=== PATIENT | male | born 1960 | race African-American/Black ===

== ENCOUNTER 2017-12-12 14:55 | Inpatient (IN) | payer OTHER, MEDICARE ==
[~2017-12-12 14:55] MED LIST: ISOVUE-370 76%-LOCM 1 ML ONE
[2017-12-12 15:28] LABS: #Lymphocytes 1.4 thou/uL (1.20-3.40); #Monocytes 0.5 thou/uL (0.11-0.59); #Neutrophils 4.7 thou/uL (1.40-6.50); %Basophils 0.4 % (0.0-1.0); %Eosinophils 0.3 % (0.0-10.0); %Lymphocytes 20.4 % (21.0-51.0); %Monocytes 7.6 % (0.0-10.0); %Neutrophils 71.3 % (42.0-75.0); Hemoglobin 15.6 g/dL (14.0-18.0); Mean Corpuscular HGB CONC 33.6 g/dL (32.0-36.0); Mean Corpuscular Hemoglobin 31.8 pg (27.0-31.0); Mean Corpuscular Volume 94.6 fL (78.0-98.0); Mean Platelet Volume 8.9 fL (7.4-10.4); Platelet Count 165 thou/uL (130-400); RBC Distribution Width 11.8 % (11.5-14.5); White Blood Cell (WBC) Count 6.7 thou/uL (4.8-10.8)
[2017-12-12 15:49] LABS: ALT (SGPT) 41 U/L (8-55); AST (SGOT) 67 U/L (5-34); Albumin 4.3 g/dL (3.5-5.0); Alkaline Phosphatase 84 U/L (40-150); Anion Gap 19 mmol/L (10-20); BUN (Urea Nitrogen) 10 mg/dL (8.4-25.7); Bilirubin, Total 1.5 mg/dL (0.2-1.2); Calc. Creatinine Clearance 0 mL/min (70-130); Calcium 9.6 mg/dL (7.8-10.44); Carbon Dioxide 24 mmol/L (22-29); Chloride 99 mmol/L (98-107); Estimated GFR-MDRD Greater than 90; Globulin 4.3 g/dL (2.4-3.5); Glucose 145 mg/dL (70-105); Lipase 162 U/L (8-78); Potassium 3.8 mmol/L (3.5-5.1); Protein, Total 8.6 g/dL (6.0-8.3); Sodium 138 mmol/L (136-145)
[2017-12-12] MEDS ORDERED: Ondansetron HCl/PF 4 MG/2 ML Vial ONE (17:03)
[2017-12-12 18:03] LABS: Bilirubin Small (Negative); Blood, Urine Small (Negative); Clarity CLOUDY (Clear); Glucose, Urine (Dipstick) Negative (Negative); Leukocyte Negative (Negative); Nitrite Negative (Negative); Protein, Urine (Dipstick) Trace mg/dL (Neg-Trace); Specific Gravity, Urine 1.022 (1.002-1.036)
[2017-12-12 18:04] LABS: Bacteria/HPF None Seen HPF (None Seen); Pathc Cast-AUWi Flag 0.72 (0-2.49); Squamous Epithelial 0-3 HPF (0-3); WBC/HPF 0-3 HPF (0-3)
[2017-12-12 18:23] LABS: Hyaline Casts/LPF NONE SEEN LPF (0-3 Hyaline)
--- NOTE | 2017-12-12 18:44 | CT ---
CT OF THE ABDOMEN AND PELVIS WITH IV CONTRAST: 12/12/17 INDICATION: Nausea, vomiting and abdominal pain. COMPARISON: None. FINDINGS: There is severe fatty infiltration of the liver. There is inflammatory changes seen in the pancreatic body and tail. No drainable fluid collection is evident. The spleen and adrenal glands appear within normal limits. There are small hypodensities involving benton th may represent cysts. There is a normal appendix in the right lower quadrant. Small bowel has a normal caliber. The bladder is moderately distended. There is scattered degenerative change. No definite acute osseous abnormali ty is evident. IMPRESSION: 1. Findings suspicious for a noncomplicated pancreatitis. 2. Severe fatty liver. 3. Renal hypodensities, too small to fully characterize, but statistically likely reflective of cysts. 4. Moderate distention of the bladder. POS: [facility]
[2017-12-12] MEDS ORDERED: Promethazine HCl 25 MG/ML VIAL ONE (19:02)
[2017-12-12] MEDS ORDERED: Ondansetron ODT 4 MG TAB PO PRN (19:55)
[2017-12-12] MEDS ORDERED: Acetaminophen 325 MG TAB PO PRN (19:55)
[2017-12-12] MEDS ORDERED: Ondansetron HCl/PF 4 MG/2 ML Vial IVP PRN (19:55)
--- NOTE | 2017-12-12 20:36 | ULT ---
RIGHT UPPER QUADRANT ULTRASOUND: 12/12/17 INDICATION: Right upper quadrant pain. FINDINGS: There is mild fatty infiltration of the liver. Small amount of sludge is seen within the gallbladder. No sonographic Mccarthy's sign is reported. Common bile duct measures 3.8 mm. Pancreas is obscured. R ight kidney measures 11.4 cm in length. IMPRESSION: 1. Fatty liver. 2. Gallbladder sludge. 3. No sonographic evidence of acute cholecystitis. POS: [facility]
[2017-12-12] MEDS: Lactated Ringer's 1,000 ML IV SCH (21:26)
[2017-12-12] MEDS ORDERED: Bisacodyl 5 MG TAB PO PRN (21:30)
[2017-12-12 22:53] VITALS: BMI 18.8
[2017-12-13] MEDS: Acetaminophen 1,000 MG in Premix Bag 1 BAG IVPB PRN ×3 (00:05→17:39)
[2017-12-13] MEDS: Lactated Ringer's 1,000 ML IV SCH ×5 (02:15→20:42)
--- NOTE | 2017-12-13 03:01 | HP ---
CHIEF COMPLAINT: Epigastric pain, nausea, and vomiting. HISTORIAN: The patient, reliable. HISTORY OF PRESENT ILLNESS: This is a 57-year-old patient with past medical history of pancreatitis 4 years ago, presenting with epigastric pain with associated symptoms of nausea and vomiting for 3 days per patient. Nausea and vomiting has been going on since Monday prior to this admission with 2017. The patient states that he took some Pepto-Bismol and he drunk Sprite and soda trying to help, but these did not help his symptoms. The patient stated that his pain was localized at the epigastric region, not radiating. Patient describes the pain as sharp, constant, pain 10/10 in severity. The patient also had associated symptoms of vomiting, which has been going on since Monday. Patient cannot tell how many times he vomited. Patient states that there is no blood in his vomitus. The patient denies fever, admits to some chills, and urinary retention, as well as constipation. Otherwise, the patient denies any chest pain, palpitation, headaches, and dizziness. REVIEW OF SYSTEMS: Positive for nausea, vomiting, pain in the epigastric region , constipation, but negative for the change that I have stated in the HPI. PAST MEDICAL HISTORY: Pancreatitis 4 years ago. PAST SURGICAL HISTORY: None. MEDICATIONS: Patient takes no medication. FAMILY HISTORY: Mom and dad from malignancy. Patient does not know which type malignancy. SOCIAL HISTORY: The patient states that he has been drinking two bottles of beer per day. Patient denies that he drinks any hard liquor. Patient had been in the in the past. The patient denies smoking any cigarettes or doing any illicit drugs. Allergies: NKDA PCP: [facility], but does not know the doctor's name. PHYSICAL EXAMINATION: VITAL SIGNS: Patient came into the emergency room was 175/98, pulse of 90, respiratory rate of 20, temperature of 98.8. Patient's vitals on admission was blood pressure 166/102, pulse was 95 and the patient was satting at 95 on room air. GENERAL: The patient appears to be very cachectic, not in acute distress, lying comfortably in bed, alert, and oriented x3. HEENT: Normocephalic, atraumatic. Pupils are equally round and reactive to light. Extraocular muscles are intact. No scleral icterus. NECK: No JVD. RESPIRATORY: Clear to auscultation bilaterally. No wheezing, no rales, no rhonchi is appreciated. CARDIOVASCULAR: Positive S1, S2, regular rate and rhythm. No murmurs, no gallops, no rubs. ABDOMEN: Mild tenderness at the epigastric region. Positive bowel sounds in all quadrants. No abdominal distention. No pulsatile masses appreciated. No peritoneal signs, no rigidity, no guarding, no rebound. No ecchymosis at the flanks. EXTREMITIES: Patient has 5/5 upper extremity strength, 5/5 lower extremity strength. The patient has good pulses bilaterally in the upper extremities and lower extremities. NEUROLOGIC: Patient is alert, oriented x3. No focal neurological deficits noted. SKIN: Warm, dry, and intact. PSYCHIATRIC: The patient is very pleasant, compliant, normal affect. LABORATORY DATA: WBC 6.7, hemoglobin 15.6, hematocrit is 46.4, platelets is 165. Chemistry: Patient's sodium is 138, potassium 3.8, chloride is 99, carbon dioxide 24, BUN is 10, creatinine 0.85. Lipase is 162. Urinalysis negative for nitrite, negative for leukocyte esterase. IMAGING: CT of the abdomen and pelvis with contrast showed noncomplicated pancreatitis, severe fatty liver, renal hypodensities, moderate distention of the bladder. ASSESSMENT AND PLAN: This is a 57-year-old gentleman with no significant past medical history except for history of pancreatitis 4 years ago. 1. Epigastric pain, nausea, and vomiting secondary to acute pancreatitis. Plan : For that we are going to give lactated Ringer's 200 mL admit patient n.p.o., admit patient's medicine floor. We will put Tylenol p.r.n. for pain and fever. We will put morphine for pain from 6-10. We will do ultrasound of the right upper quadrant, rule out gallstones. He has gallstones at the most common cause of pancreatitis. However, the patient is ethanol abuser, so we will advise the patient to stop or quit drinking and we will also do a lipid panel and get hemoglobin A1c. We will also obtain EKG. 2. Hypertension. Currently, the patient's blood pressure is 168 systolic on admission. We will consider starting patient on blood pressure medication. 3. Transaminitis. At this point, patient's AST is 67, we will monitor. 4. Fatty liver. Right upper quadrant ultrasound has been ordered. We will followup on the results. Currently, we will monitor the patient. 5. Deep venous thrombosis prophylaxis. We will encourage the patient to ambulate. We will do sequential compression device. 6. Gastrointestinal prophylaxis. We will do Pepcid. DISPOSITION: The patient is going to be admitted to the medicine floor. We are going to keep patient on lactated Ringer's. We will bring the lactated Ringer's down when the patient starts feeling hungry and patient wants to eat, we will feed the patient and possibly discharge the patient. This case was dictated by Dr. Sloan Mills on patient Maryellen Gutierrez. [facility]
[2017-12-13 05:19] LABS: Hemoglobin A1c 5.3 % (4.0-6.0)
[2017-12-13 05:28] LABS: Anion Gap 10 mmol/L (10-20); BUN (Urea Nitrogen) 9 mg/dL (8.4-25.7); Calc. Creatinine Clearance 104 mL/min (70-130); Calcium 8.4 mg/dL (7.8-10.44); Carbon Dioxide 30 mmol/L (22-29); Cardiac Risk 2.2 (Less than 4.5); Chloride 103 mmol/L (98-107); Cholesterol 153 mg/dl (< 200 Desired); Estimated GFR-MDRD Greater than 90; Glucose 89 mg/dL (70-105); HDL Cholesterol 69 mg/dL (>60 Neg Risk); LDL Cholesterol, Calculated 71 mg/dL; Magnesium 1.8 mg/dL (1.6-2.6); Potassium 3.4 mmol/L (3.5-5.1); Sodium 140 mmol/L (136-145); Triglycerides 64 mg/dL (Less than 150)
[2017-12-13] MEDS ORDERED: Lorazepam 2 MG/ML VIAL SLOW IVP PRN (14:10)
--- NOTE | 2017-12-13 14:13 | PDOC.PN ---
- Subjective Encounter Start Date: 12/13/17 Encounter Start Time: 14:14 Subjective: nsg notes rev, gin ovn, pt c/o abd pain about 7/10, better with IV -: acetaminophen, no nausea, no BM - Objective Resuscitation Status: Resuscitation Status FULL:Full Resuscitation Vital Signs & Weight: Vital Signs (12 hours) Temp Pulse Resp BP BP Pulse Ox 12/13/17 11:30 98.3 F 73 16 156/91 H 96 12/13/17 08:00 98.0 F 70 16 170/89 H 95 12/13/17 04:00 98.1 F 69 18 132/87 96 Weight Weight 154 lb 5.177 oz I&O: 12/12/17 12/13/17 12/14/17 06:59 06:59 06:59 Intake Total 1999 Balance 1999 Result Diagrams: 12/12/17 15:19 12/13/17 04:27 Phys Exam - Physical Examination Constitutional: NAD HEENT: PERRLA, moist MMs, sclera anicteric Respiratory: no wheezing, no rales, no rhonchi Cardiovascular: RRR, no significant murmur, no rub Gastrointestinal: soft, non-tender, no distention, positive bowel sounds Musculoskeletal: no edema Neurological: moves all 4 limbs Psychiatric: normal affect, A&O x 3 Dx/Plan - Plan * pancreatitis * med mgmt with NPO, IVF, repeat LFTs in AM * d/w pt - states his typical "flares" last approx 3-4 days apiece * will dec dose strength but inc freq of morphine dosing * transaminitis * likely rel to above * continue to monitor * repeat CMP in AM * etoh use/ abuse * counseled re: cessation, curr pre-contemplative * pt denies any hx of etoh w/d in the past * fatty liver * 2/2 to above * monitor transaminitis * * hypertension * stable, continue to monitor * diet; npo * activity: as eneida * dvt ppx Review of Systems - Medications/Allergies Allergies/Adverse Reactions: Allergies Allergy/AdvReac Type Severity Reaction Status Date / Time No Known Drug Allergies Allergy Verified 12/13/17 00:28 Medications: Current Medications Acetaminophen (Tylenol) 650 mg PO Q4H PRN PRN Reason: Headache/Fever or Pain Bisacodyl (Dulcolax) 10 mg PO DAILYPRN PRN PRN Reason: Constipation Lactated Ringer's (Lactated Ringer's) 1,000 mls @ 200 mls/hr IV .Q5H [facility] Last Admin: 12/13/17 12:29 Dose: 1,000 mls Acetaminophen 1,000 mg/ Device 100 mls @ 400 mls/hr IVPB Q6H PRN PRN Reason: Fever/Mild Pain Stop: 12/13/17 23:59 Last Admin: 12/13/17 09:49 Dose: 100 mls Lorazepam (Ativan) 0.5 mg SLOW IVP Q6H PRN PRN Reason: Anxiety/Agitation Morphine Sulfate (Morphine) 1 mg SLOW IVP Q3H PRN PRN Reason: Moderate to Severe Pain (4-10) Ondansetron HCl (Zofran Odt) 4 mg PO Q6H PRN PRN Reason: Nausea/Vomiting Ondansetron HCl (Zofran) 4 mg IVP Q6H PRN PRN Reason: Nausea/Vomiting Sodium Chloride (Flush - Normal Saline) 10 ml IVF PRN PRN PRN Reason: Saline Flush
[2017-12-14] MEDS: Lactated Ringer's 1,000 ML IV SCH ×5 (01:47→21:45)
--- NOTE | 2017-12-14 22:56 | PDOC.PN ---
- Subjective Encounter Start Date: 12/14/17 Encounter Start Time: 17:00 Subjective: nsg notes rev, gin ovn, pain improv now more in the 3/10 range -: tolerating clear liq diet - Objective Resuscitation Status: Resuscitation Status FULL:Full Resuscitation Vital Signs & Weight: Vital Signs (12 hours) Temp Pulse Resp BP BP BP Pulse Ox 12/14/17 20:00 155/98 H 12/14/17 19:55 98.3 F 90 16 155/98 H 95 12/14/17 16:20 97.5 F L 66 18 182/89 H 97 12/14/17 12:00 97.9 F 84 18 148/86 H 97 Weight Admit Weight 154 lb 5.177 oz Weight 154 lb 5.177 oz I&O: 12/13/17 12/14/17 12/15/17 06:59 06:59 06:59 Intake Total 1999 2400 Balance 1999 2400 Result Diagrams: 12/12/17 15:19 12/13/17 04:27 Phys Exam - Physical Examination Constitutional: NAD seated in hosp chair HEENT: moist MMs Respiratory: no wheezing, no rales, no rhonchi, clear to auscultation bilateral Cardiovascular: RRR, no significant murmur, no rub Gastrointestinal: soft, non-tender, positive bowel sounds Musculoskeletal: no edema Neurological: moves all 4 limbs Dx/Plan - Plan * pancreatitis, symptomatically improving * d/c ivf once tolerating clear liq diet * has been requiring sig less pain medication * transaminitis * likely rel to above * continue to monitor * repeat CMP in AM * etoh use/ abuse * counseled re: cessation, curr pre-contemplative * pt denies any hx of etoh w/d in the past * fatty liver * 2/2 to above * monitor transaminitis * * hypertension * stable, continue to monitor * diet; adv as eneida * activity: as eneida * dvt ppx poss d/c tomorrow if eneida diet Review of Systems - Medications/Allergies Allergies/Adverse Reactions: Allergies Allergy/AdvReac Type Severity Reaction Status Date / Time No Known Drug Allergies Allergy Verified 12/13/17 00:28 Medications: Current Medications Acetaminophen (Tylenol) 650 mg PO Q4H PRN PRN Reason: Headache/Fever or Pain Bisacodyl (Dulcolax) 10 mg PO DAILYPRN PRN PRN Reason: Constipation Lactated Ringer's (Lactated Ringer's) 1,000 mls @ 200 mls/hr IV .Q5H [facility] Last Admin: 12/14/17 21:45 Dose: 1,000 mls Lorazepam (Ativan) 0.5 mg SLOW IVP Q6H PRN PRN Reason: Anxiety/Agitation Morphine Sulfate (Morphine) 1 mg SLOW IVP Q3H PRN PRN Reason: Moderate to Severe Pain (4-10) Last Admin: 12/14/17 12:13 Dose: 1 mg Ondansetron HCl (Zofran Odt) 4 mg PO Q6H PRN PRN Reason: Nausea/Vomiting Ondansetron HCl (Zofran) 4 mg IVP Q6H PRN PRN Reason: Nausea/Vomiting Sodium Chloride (Flush - Normal Saline) 10 ml IVF PRN PRN PRN Reason: Saline Flush
[2017-12-15] MEDS: Lactated Ringer's 1,000 ML IV SCH ×3 (02:43→14:41)
[2017-12-15 07:27] VITALS: TEMP 98.3
[2017-12-15 11:27] VITALS: BP 166/94
--- NOTE | 2017-12-15 13:27 | DIS ---
PRIMARY CARE PHYSICIAN: None. DISCHARGE DIAGNOSES: Alcohol-induced acute pancreatitis, resolved. BRIEF SUMMARY OF HOSPITAL COURSE: This is a 57-year-old male with known history of alcohol pancreati tis, chronic pancreatitis, and recurrent pancreatitis, who presented with more of the same. He initi ally presented with a chief complaint of abdominal pain. Please see original history and physical fo r full details. Patient was initiated on medical management for the pancreatitis including IV pain m edication control with morphine p.r.n., IV fluids, and antiemetics. The patient was able to graduall y decrease the amount of pain medication required for adequate pain control after adequate hydration. The patient has been advanced on his diet and at the time of discharge he is tolerating a soft blan d diet. The patient has been given instructions to further advance his diet at home. The patient has been counseled regarding alcohol cessation. Patient was also observed for alcohol wi thdrawal, which he did not demonstrate during this hospitalization. Patient indicates that he is cur rently precontemplative of cessation from his alcohol usage at this point in time. Remainder of the patient's chronic medical issues were without change during this hospitalization. CONSULTATIONS: None. MEDICATION RECONCILIATION: Please see the EMR for full details. Of note, the patient does not take any medications at home and is not being discharged home with any medications. PATIENT'S CONDITION ON DISCHARGE: At the time of discharge, the patient is tolerating a soft bland d iet. He is functioning at his baseline ADLs and we will advance his diet further at home. DISCHARGE FOLLOWUP: The patient has been asked to follow up carefully with an outpatient primary car e provider. The patient has been counseled regarding alcohol cessation as above. The patient is abl e to complete teach-back. Thank you for asking me to care for the patient. Greater than 30 minutes spent coordinating discharg e for the patient.
== END 2017-12-15 16:00 | disposition home or self-care (01) | DRG 440 ==
LOC: ERS 14:55 → T4-B 19:04
PROVIDERS: ADMIT Internal Medicine; ATTEND Internal Medicine
DX: K85.20 Alcohol induced acute pancreatitis without necrosis or infection (principal); I10 Essential (primary) hypertension
CPT/HCPCS: 36415; 74177; 76705; 80048; 80053; 80061; 81003; 81015; 83036; 83690; 83735; 85025; 93005; 96361; 96365; 96366; 96375; 96376; J0131; J2270; J2405; J2550; J7120

== ENCOUNTER 2018-01-20 20:05 | Inpatient (IN) | payer MEDICARE ==
--- NOTE | 2018-01-20 20:50 | RAD ---
CHEST ONE VIEW 01/20/18 HISTORY: Nausea and vomiting. COMPARISON: None. FINDINGS: Lungs are hyperinflated. Mild ectasis of the ascending aorta. Chronic scarring in the lung bases. IMPRESSION: 1. Mild lung hyperinflation suggesting obstructive pulmonary disease. 2. Mild ectasis of the ascending aorta. POS: [facility]
[2018-01-20 21:04] LABS: #Basophils 0.1 thou/uL (0.0-0.2); #Lymphocytes 1.8 thou/uL (1.20-3.40); #Monocytes 0.5 thou/uL (0.11-0.59); #Neutrophils 2.9 thou/uL (1.40-6.50); %Eosinophils 0.8 % (0.0-10.0); %Lymphocytes 34.4 % (21.0-51.0); %Monocytes 8.6 % (0.0-10.0); %Neutrophils 55.2 % (42.0-75.0); Hemoglobin 15.5 g/dL (14.0-18.0); Mean Corpuscular HGB CONC 33.6 g/dL (32.0-36.0); Mean Corpuscular Hemoglobin 31.6 pg (27.0-31.0); Mean Corpuscular Volume 94.2 fL (78.0-98.0); Mean Platelet Volume 8.5 fL (7.4-10.4); Platelet Count 216 thou/uL (130-400); RBC Distribution Width 11.7 % (11.5-14.5); Red Blood Cell (RBC) Count 4.89 mill/uL (4.70-6.10); White Blood Cell (WBC) Count 5.2 thou/uL (4.8-10.8)
[2018-01-20] MEDS ORDERED: Morphine 4 MG/ML VIAL ONE ×2 (21:20→23:27)
[2018-01-20] MEDS ORDERED: Ondansetron HCl/PF 4 MG/2 ML Vial ONE (21:20)
[2018-01-20 22:07] LABS: ALT (SGPT) 54 U/L (8-55); AST (SGOT) 80 U/L (5-34); Albumin 4.2 g/dL (3.5-5.0); Alkaline Phosphatase 87 U/L (40-150); Anion Gap 15 mmol/L (10-20); BUN (Urea Nitrogen) 5 mg/dL (8.4-25.7); Bilirubin, Total 0.6 mg/dL (0.2-1.2); CK (CPK) 257 U/L (30-200); Calc. Creatinine Clearance 0 mL/min (70-130); Calcium 8.9 mg/dL (7.8-10.44); Carbon Dioxide 24 mmol/L (22-29); Chloride 102 mmol/L (98-107); Estimated GFR-MDRD Greater than 90; Globulin 4.2 g/dL (2.4-3.5); Glucose 93 mg/dL (70-105); Lipase 90 U/L (8-78); Potassium 3.4 mmol/L (3.5-5.1); Protein, Total 8.4 g/dL (6.0-8.3); Sodium 138 mmol/L (136-145)
[2018-01-20 22:10] LABS: CKMB 1.6 ng/mL (0-6.6); Troponin I Less than 0.010 ng/mL (< 0.028)
--- NOTE | 2018-01-20 22:58 | CT ---
CT ABDOMEN AND PELVIS WITH CONTRAST: 01/20/18 HISTORY: Abdominal pain. COMPARISON: CT abdomen and pelvis 12/12/17. FINDINGS: Mild atelectasis in the lung bases. No pericardial effusion. Diffuse hepatic steatosis. There is infl ammation along the pancreatic head and uncinate process. Mild hyperenhancement of the common bile duct. Common bile duct does measure under 6 mm. Normal renal enhancement. Urinary bladder is markedly enlarged. Prior left inguinal hernia repair. No dilated loops of large or small bowel. Appendix is visualized and is normal. IMPRESSION: Acute edematous pancreatitis with likely reactive hyperenhancement of the common bile duct which is n ot significantly dilated. No areas of necrosis. POS: [facility]
[2018-01-20 23:02] LABS: Bilirubin Negative (Negative); Blood, Urine Negative (Negative); Clarity CLEAR (Clear); Glucose, Urine (Dipstick) Negative (Negative); Leukocyte Negative (Negative); Nitrite Negative (Negative); Protein, Urine (Dipstick) Negative (Neg-Trace); Specific Gravity, Urine 1.007 (1.002-1.036); Urobilinogen 0.2 mg/dL (0.2-1.0); pH, Urine 5.5 (5.0-9.0)
[2018-01-20] MEDS ORDERED: Multivitamins, Adult 10 ML, Thiamine HCl 100 MG, Folic Acid 1 MG in Dextrose 5 %-0.45 %... IV SCH (23:30)
[2018-01-21] MEDS ORDERED: Sodium Chloride 0.9% 1,000 ML IV SCH (00:30)
[2018-01-21 05:36] LABS: #Basophils 0.1 thou/uL (0.0-0.2); #Eosinphils 0.1 thou/uL (0.0-0.7); #Lymphocytes 1.7 thou/uL (1.20-3.40); #Monocytes 0.5 thou/uL (0.11-0.59); %Eosinophils 1.7 % (0.0-10.0); %Lymphocytes 31.8 % (21.0-51.0); %Monocytes 8.6 % (0.0-10.0); %Neutrophils 56.9 % (42.0-75.0); Hemoglobin 14.4 g/dL (14.0-18.0); Mean Corpuscular Hemoglobin 32.2 pg (27.0-31.0); Mean Corpuscular Volume 94.9 fL (78.0-98.0); Mean Platelet Volume 9.1 fL (7.4-10.4); Platelet Count 186 thou/uL (130-400); RBC Distribution Width 11.8 % (11.5-14.5); Red Blood Cell (RBC) Count 4.46 mill/uL (4.70-6.10); White Blood Cell (WBC) Count 5.2 thou/uL (4.8-10.8)
[2018-01-21 06:03] LABS: Anion Gap 16 mmol/L (10-20); BUN (Urea Nitrogen) 7 mg/dL (8.4-25.7); Calc. Creatinine Clearance 110 mL/min (70-130); Calcium 8.1 mg/dL (7.8-10.44); Carbon Dioxide 24 mmol/L (22-29); Chloride 104 mmol/L (98-107); Estimated GFR-MDRD Greater than 90; Glucose 82 mg/dL (70-105); Potassium 3.7 mmol/L (3.5-5.1); Sodium 140 mmol/L (136-145)
[2018-01-21] MEDS: Enoxaparin Sodium 40 MG/0.4 ML SYRINGE SC SCH (08:02)
[2018-01-21] MEDS: Sodium Chloride 0.9% 1,000 ML IV SCH ×4 (08:03→21:29)
--- NOTE | 2018-01-21 09:11 | HP ---
PRIMARY CARE PHYSICIAN: No PCP. CODE STATUS: FULL CODE. TIME OF EVALUATION: 11:35 p.m. CHIEF COMPLAINT: Severe abdominal pain. HISTORY OF PRESENT ILLNESS: This is a 57-year-old male patient with a long history of alcohol abuse and chronic pancreatitis, who came to the hospital after having an episode of severe abdominal pain and multiple episodes of nausea and vomiting, the patient reported that the pain was in the mid abdomen, with diffuse radiation. No diarrhea or fever. No other complaints. The only alleviating factor was opiate medications given in the ER. REVIEW OF SYSTEMS: Constitutional: No fever or chills or generalized weakness. Respiratory: No cough, sputum production, shortness of breath. Cardiovascular: No chest pain or palpitations. Gastrointestinal: The patient has nausea, vomiting, and severe abdominal pain diffuse in the abdomen. Central Nervous System: No dizziness, headache or feeling lightheaded. Genitourinary: No burning with urination. Extremities: No leg swelling. All other systems reviewed were negative except for the findings mentioned above. PAST MEDICAL HISTORY: Positive for chronic alcohol abuse, chronic pancreatitis. PAST SURGICAL HISTORY: Right knee. PSYCHIATRIC HISTORY: No previous psychiatric history. FAMILY HISTORY : Reviewed and non contributory for current presentation. SOCIAL HISTORY: The patient drinks every day at least 5 drinks per day. KNOWN ALLERGIES: No known drug allergies. REPORTED MEDICATIONS: None. PHYSICAL EXAMINATION: VITAL SIGNS: On presentation, heart rate 132, temperature 98.5, pain 9/10, oxygen saturation 99% on room air. GENERAL APPEARANCE: Patient is alert and oriented, not in any acute distress. HEENT: Eyes: Normal conjunctivae. Moist oral mucosa. Anicteric. NECK: No JVD. RESPIRATORY: Bilateral air entry. No rales, no wheezing. Symmetric expansion. CARDIOVASCULAR: Normal rate, regular rhythm. No murmurs, no gallop. No edema. ABDOMEN: Soft, tender. Normal bowel sounds. MUSCULOSKELETAL: Baseline range of motion and strength, no tenderness. SKIN: Warm and intact. No pallor, no rash or redness. Peripheral pulses are present. Capillary refill seems to be intact. NEUROLOGIC: Baseline sensory. No evidence of any new focal weakness. Baseline speech. Cranial nerves seem to be intact. PSYCHIATRIC: The patient is in good mood. No anxiety, oriented, optimal judgment. IMAGING: EKG as discussed with performing physician from ER shows sinus tachycardia at the rate of 102 with nonspecific acute findings for ischemia or arrhythmias. Chest x-ray showed mild lung hyperinflation suggesting obstructive pulmonary disease and mild ectasia of the ascending aorta. Abdomen and pelvis CT showed acute pancreatitis. LABORATORY DATA: Labs were reviewed. The patient has white count of 5.2, hemoglobin 14.4, MCV 94.9, platelet count 186. Chemistry: Sodium 138, potassium 3.4, chloride 102, carbon dioxide 24, anion gap 15, BUN 5, creatinine 0.8, GFR 90, glucose 93, calcium 8.9, total bilirubin 0.6, AST 80, ALT 54. CK 257, serum total protein 8.4, albumin 4.2, globulin 4.2, albumin globulin ratio is 1, lipase 90. UA was negative. ASSESSMENT AND PLAN: The patient will be placed in the hospital with following medical problems. 1. Acute pancreatitis. The patient needing opioids for optimal control. This placed the patient at high risk for complications due to need for controlled substances, the patient will receive IV fluids. 2. Severe abdominal pain. Treatment as above. 3. History of alcohol abuse, patient may need CLARENCE protocol to be initiated given high risk for delirium tremens. 4. Deep venous thrombosis prophylaxis. [facility]TDD
[2018-01-21] MEDS: Ondansetron HCl/PF 4 MG/2 ML Vial IVP PRN (11:12)
[2018-01-21] MEDS: Acetaminophen 325 MG TAB PO PRN ×2 (14:23→19:02)
[2018-01-21] MEDS ORDERED: Morphine 4 MG/ML VIAL SLOW IVP PRN (16:14)
--- NOTE | 2018-01-21 16:18 | PDOC.PN ---
- Subjective Encounter Start Date: 01/21/18 Encounter Start Time: 16:15 Subjective: nsg notes rev, gin ovn, still c/o severe abd pain and feels that the pain -: medication does not seem to help at all w hen it is given. hx of difficult -: control pain with pancreatitis episodes in the past, per pt - Objective Resuscitation Status: Resuscitation Status FULL:Full Resuscitation Vital Signs & Weight: Vital Signs (12 hours) Temp Pulse Resp BP BP Pulse Ox 01/21/18 15:43 98.2 F 73 16 154/90 H 154/90 H 96 01/21/18 11:35 98 F 72 14 171/96 H 171/96 H 94 L 01/21/18 08:00 97.9 F 81 16 171/92 H 171/92 H 94 L Weight Weight 168 lb 8 oz I&O: 01/20/18 01/21/18 01/22/18 06:59 06:59 06:59 Intake Total 750 Output Total 950 Balance -200 Result Diagrams: 01/21/18 04:39 01/21/18 04:39 Phys Exam - Physical Examination Constitutional: NAD HEENT: PERRLA, moist MMs Respiratory: no wheezing, no rales, no rhonchi, clear to auscultation bilateral Cardiovascular: RRR, no significant murmur, no rub Gastrointestinal: soft, positive bowel sounds tender to palpation throughout Musculoskeletal: no edema, pulses present Neurological: moves all 4 limbs Psychiatric: normal affect, A&O x 3 Dx/Plan - Plan * pancreatitis * NPO, IVF, pain regimen * inc morphine form 2mg IV q4H to 3mg IV q4H and close monitoring of respiratory status and hemodynamics * d/w pt that any changes to his regimen will be step kern and no oral intake beyond sips of clears while on pain medications abd pain - 2/2 pancreatitis as per above recheck lipase and LFTs in AM diet: npo activity: as eneida dvt ppx d/w pt at bedside Review of Systems - Medications/Allergies Allergies/Adverse Reactions: Allergies Allergy/AdvReac Type Severity Reaction Status Date / Time No Known Drug Allergies Allergy Verified 12/13/17 00:28 Medications: Current Medications Acetaminophen (Tylenol) 650 mg PO Q4H PRN PRN Reason: Headache/Fever or Pain Last Admin: 01/21/18 14:23 Dose: 650 mg Enoxaparin Sodium (Lovenox) 40 mg SC 0900 [facility] Last Admin: 01/21/18 08:02 Dose: 40 mg Sodium Chloride (Normal Saline 0.9%) 1,000 mls @ 150 mls/hr IV .Q6H40M [facility] Last Admin: 01/21/18 12:07 Dose: 1,000 mls Morphine Sulfate (Morphine) 3 mg SLOW IVP Q4H PRN PRN Reason: Severe Pain (7-10) Ondansetron HCl (Zofran) 4 mg IVP Q6H PRN PRN Reason: Nausea/Vomiting Last Admin: 01/21/18 11:12 Dose: 4 mg
[2018-01-22] MEDS: Sodium Chloride 0.9% 1,000 ML IV SCH ×4 (03:36→19:45)
[2018-01-22 06:39] LABS: #Eosinphils 0.1 thou/uL (0.0-0.7); #Lymphocytes 1.2 thou/uL (1.20-3.40); #Monocytes 0.8 thou/uL (0.11-0.59); #Neutrophils 4.9 thou/uL (1.40-6.50); %Basophils 0.6 % (0.0-1.0); %Lymphocytes 17.7 % (21.0-51.0); %Neutrophils 69.7 % (42.0-75.0); Hemoglobin 14.1 g/dL (14.0-18.0); Mean Corpuscular HGB CONC 33.4 g/dL (32.0-36.0); Mean Corpuscular Hemoglobin 31.8 pg (27.0-31.0); Mean Corpuscular Volume 95.4 fL (78.0-98.0); Mean Platelet Volume 8.6 fL (7.4-10.4); Platelet Count 176 thou/uL (130-400); RBC Distribution Width 11.5 % (11.5-14.5); Red Blood Cell (RBC) Count 4.42 mill/uL (4.70-6.10)
[2018-01-22 07:03] LABS: ALT (SGPT) 28 U/L (8-55); AST (SGOT) 30 U/L (5-34); Albumin 3.5 g/dL (3.5-5.0); Alkaline Phosphatase 77 U/L (40-150); Anion Gap 16 mmol/L (10-20); BUN (Urea Nitrogen) 5 mg/dL (8.4-25.7); Bilirubin, Total 1.1 mg/dL (0.2-1.2); Calc. Creatinine Clearance 127 mL/min (70-130); Calcium 8.1 mg/dL (7.8-10.44); Carbon Dioxide 22 mmol/L (22-29); Chloride 102 mmol/L (98-107); Estimated GFR-MDRD Greater than 90; Globulin 3.4 g/dL (2.4-3.5); Glucose 76 mg/dL (70-105); Lipase 202 U/L (8-78); Potassium 3.6 mmol/L (3.5-5.1); Protein, Total 6.9 g/dL (6.0-8.3); Sodium 136 mmol/L (136-145)
[2018-01-22] MEDS ORDERED: Chloraseptic Spray 180 ml Bottle PO PRN (07:50)
[2018-01-22] MEDS ORDERED: Mag-Al 1200 mg/1200 mg/30 ML UDCUP PO PRN (07:50)
[2018-01-22] MEDS ORDERED: Artificial Tears 18 DROP/0.9 ML EA EYE PRN (07:50)
[2018-01-22] MEDS ORDERED: Loratadine 10 MG TAB PO PRN (07:50)
[2018-01-22] MEDS ORDERED: Sodium Chloride 0.65% Nasal 44 ML BOT EA NARE PRN (07:50)
[2018-01-22] MEDS ORDERED: Lorazepam 1 MG TAB PO PRN (07:50)
[2018-01-22] MEDS ORDERED: Loperamide HCl 2 MG CAP PO PRN (07:50)
[2018-01-22] MEDS ORDERED: hydrALAZINE 20 MG/ML VIAL SLOW IVP PRN (07:50)
[2018-01-22] MEDS ORDERED: Zolpidem Tartrate 5 MG TAB PO PRN (07:50)
[2018-01-22] MEDS ORDERED: Famotidine/PF 20 mg/2ml Vial SLOW IVP PRN (07:50)
[2018-01-22] MEDS ORDERED: Senokot 8.6 MG TAB PO PRN (07:50)
[2018-01-22] MEDS ORDERED: Milk Of Magnesia 30 ML UDCUP PO PRN (07:50)
[2018-01-22] MEDS ORDERED: Eucerin (Mineral Oil/Petrolatum,White) 30 gm Jar TOP PRN (07:50)
[2018-01-22] MEDS ORDERED: Ondansetron ODT 4 MG TAB PO PRN (07:50)
[2018-01-22] MEDS ORDERED: Diabetic Tussin 200 MG/10 ML UDCUP PO PRN (07:50)
[2018-01-22] MEDS ORDERED: Dextrose 5 % And 0.9 % NaCl 1,000 ML IV SCH (08:00)
[2018-01-22 08:21] LABS: CRP (Inflammatory) 3.65 mg/dL (= or < 0.5); Cardiac Risk 2.4 (Less than 4.5); Magnesium 1.7 mg/dL (1.6-2.6)
[2018-01-22] MEDS: Enoxaparin Sodium 40 MG/0.4 ML SYRINGE SC SCH (08:50)
--- NOTE | 2018-01-22 11:15 | PDOC.PN ---
- Subjective Encounter Start Date: 01/22/18 Encounter Start Time: 08:00 -: old records requested/rev pt has epigastric abdominal pain, no fever - Objective Resuscitation Status: Resuscitation Status FULL:Full Resuscitation MAR Reviewed: Yes Vital Signs & Weight: Vital Signs (12 hours) Temp Pulse Resp BP Pulse Ox 01/22/18 08:50 88 14 145/84 H 95 01/22/18 03:45 98 F 79 16 166/90 H 95 Weight Weight 164 lb 12.8 oz I&O: 01/21/18 01/22/18 01/23/18 06:59 06:59 06:59 Intake Total 750 3300 Output Total 950 2200 Balance -200 1100 Result Diagrams: 01/22/18 06:22 01/22/18 06:22 Radiology Reviewed by me: Yes EKG Reviewed by me: Yes Phys Exam - Physical Examination Constitutional: NAD HEENT: PERRLA, moist MMs, sclera anicteric Neck: no JVD, supple Respiratory: no wheezing, no rales, no rhonchi Cardiovascular: RRR, no significant murmur, no rub Gastrointestinal: soft, non-tender, no distention, positive bowel sounds Musculoskeletal: no edema, pulses present Neurological: non-focal, normal sensation, moves all 4 limbs Lymphatic: no nodes Psychiatric: normal affect, A&O x 3 Skin: no rash, normal turgor Dx/Plan (1) Acute alcoholic pancreatitis Code(s): K85.20 - ALCOHOL INDUCED ACUTE PANCREATITIS WITHOUT NECROSIS OR INFCT Status: Acute (2) Hypokalemia Code(s): E87.6 - HYPOKALEMIA Status: Acute (3) Alcohol abuse Code(s): F10.10 - ALCOHOL ABUSE, UNCOMPLICATED Status: Chronic (4) Hypertension Code(s): I10 - ESSENTIAL (PRIMARY) HYPERTENSION Status: Chronic - Plan cont current plan of care, incentive spirometry * medication reviewed as below * symptomatic treatment * transfer to medical * continue IVF * add dex with NS with MVI daily * pain control with narcotics * incentive spiormetry * monitor labs * ice chips and meds with water ok today. * miralax daily for constipation Review of Systems - Review of Systems Constitutional: negative: fever, chills, sweats, weakness, malaise, other Eyes: negative: Pain, Vision Change, Conjunctivae Inflammation, Eyelid Inflammation, Redness, Other ENT: negative: Ear Pain, Ear Discharge, Nose Pain, Nose Discharge, Nose Congestion, Mouth Pain, Mouth Swelling, Throat Pain, Throat Swelling, Other Respiratory: negative: Cough, Dry, Shortness of Breath, Hemoptysis, SOB with Excertion, Pleuritic Pain, Sputum, Wheezing Cardiovascular: negative: chest pain, palpitations, orthopnea, paroxysmal nocturnal dyspnea, edema, light headedness, other Gastrointestinal: Nausea, Abdominal Pain, Constipation. negative: Vomiting, Diarrhea, Melena, Hematochezia, Other Genitourinary: negative: Dysuria, Frequency, Incontinence, Hematuria, Retention , Other Musculoskeletal: negative: Neck Pain, Shoulder Pain, Arm Pain, Back Pain, Hand Pain, Leg Pain, Foot Pain, Other Skin: negative: Rash, Lesions, German, Bruising, Other - Medications/Allergies Allergies/Adverse Reactions: Allergies Allergy/AdvReac Type Severity Reaction Status Date / Time No Known Drug Allergies Allergy Verified 12/13/17 00:28 Medications: Current Medications Acetaminophen (Tylenol) 650 mg PO Q4H PRN PRN Reason: Headache/Fever or Pain Last Admin: 01/21/18 19:02 Dose: 650 mg Hydrocodone Bitart/Acetaminophen ([place] 5/325) 1 tab PO Q4H PRN PRN Reason: Moderate Pain (4-6) Al Hydroxide/Mg Hydroxide (Maalox) 15 ml PO Q4H PRN PRN Reason: Heartburn or Indigestion Artificial Tears (Tears Naturale) 0 drop EA EYE PRN PRN PRN Reason: Dry Eyes Enoxaparin Sodium (Lovenox) 40 mg SC 0900 [facility] Last Admin: 01/22/18 08:50 Dose: 40 mg Famotidine (Pepcid) 20 mg SLOW IVP Q12HR PRN PRN Reason: Heartburn or Indigestion Guaifenesin (Robitussin Sf) 200 mg PO Q4H PRN PRN Reason: Cough Hydralazine HCl (Apresoline) 10 mg SLOW IVP Q4H PRN PRN Reason: Systolic BP > 180 Sodium Chloride (Normal Saline 0.9%) 1,000 mls @ 150 mls/hr IV .Q6H40M [facility] Last Admin: 01/22/18 11:05 Dose: Not Given Dextrose/Sodium Chloride (D5 0.9% Ns) 1,000 mls @ 150 mls/hr IV .Q6H40M [facility] Last Admin: 01/22/18 11:05 Dose: 1,000 mls Loperamide HCl (Imodium) 2 mg PO PRN PRN PRN Reason: Diarrhea/Loose Stools Loratadine (Claritin) 10 mg PO DAILYPRN PRN PRN Reason: Sinus Symptoms Lorazepam (Ativan) 1 mg PO Q4H PRN PRN Reason: Anxiety/Agitation Magnesium Hydroxide (Milk Of Magnesium) 30 ml PO DAILYPRN PRN PRN Reason: Constipation Mineral Oil/White Petrolatum (Eucerin Cream) 0 gm TOP BIDPRN PRN PRN Reason: Dry Skin Morphine Sulfate (Morphine) 2 mg SLOW IVP Q2H PRN PRN Reason: PAIN 4-6 Last Admin: 01/22/18 08:51 Dose: 2 mg Ondansetron HCl (Zofran) 4 mg IVP Q6H PRN PRN Reason: Nausea/Vomiting Last Admin: 01/21/18 11:12 Dose: 4 mg Ondansetron HCl (Zofran Odt) 4 mg PO Q6H PRN PRN Reason: Nausea/Vomiting Phenol (Chloraseptic [place] 180 Ml Bot) 0 ml PO PRN PRN PRN Reason: Sore Throat Senna (Senokot) 2 tab PO HSPRN PRN PRN Reason: Constipation Sodium Chloride ([place] Nasal [place] 0.65%) 0 ml EA NARE QIDPRN PRN PRN Reason: Nasal Congestion Sodium Chloride (Flush - Normal Saline) 10 ml IVF Q12HR [facility] Last Admin: 01/22/18 11:05 Dose: Not Given Sodium Chloride (Flush - Normal Saline) 10 ml IVF PRN PRN PRN Reason: Saline Flush Zolpidem Tartrate (Ambien) 5 mg PO HSPRN PRN PRN Reason: Insomnia
[2018-01-22] MEDS ORDERED: Multivitamins, Adult 10 ML in Sodium Chloride 0.9% 1,000 ML IV SCH (14:30)
[2018-01-23] MEDS: Sodium Chloride 0.9% 1,000 ML IV SCH ×3 (02:25→14:45)
[2018-01-23 05:03] LABS: #Basophils 0.1 thou/uL (0.0-0.2); #Eosinphils 0.1 thou/uL (0.0-0.7); #Lymphocytes 1.5 thou/uL (1.20-3.40); #Monocytes 0.6 thou/uL (0.11-0.59); #Neutrophils 2.1 thou/uL (1.40-6.50); %Basophils 1.3 % (0.0-1.0); %Eosinophils 2.6 % (0.0-10.0); %Lymphocytes 35.1 % (21.0-51.0); %Monocytes 13.2 % (0.0-10.0); %Neutrophils 47.9 % (42.0-75.0); Hemoglobin 13.3 g/dL (14.0-18.0); Mean Corpuscular HGB CONC 33.8 g/dL (32.0-36.0); Mean Corpuscular Hemoglobin 32.6 pg (27.0-31.0); Mean Corpuscular Volume 96.3 fL (78.0-98.0); Mean Platelet Volume 9.4 fL (7.4-10.4); Platelet Count 162 thou/uL (130-400); RBC Distribution Width 11.4 % (11.5-14.5); Red Blood Cell (RBC) Count 4.09 mill/uL (4.70-6.10); White Blood Cell (WBC) Count 4.4 thou/uL (4.8-10.8)
[2018-01-23 05:33] LABS: ALT (SGPT) 21 U/L (8-55); AST (SGOT) 28 U/L (5-34); Albumin 3.3 g/dL (3.5-5.0); Alkaline Phosphatase 69 U/L (40-150); Anion Gap 12 mmol/L (10-20); BUN (Urea Nitrogen) 7 mg/dL (8.4-25.7); Bilirubin, Total 0.9 mg/dL (0.2-1.2); Calc. Creatinine Clearance 117 mL/min (70-130); Calcium 8.2 mg/dL (7.8-10.44); Carbon Dioxide 25 mmol/L (22-29); Chloride 106 mmol/L (98-107); Estimated GFR-MDRD Greater than 90; Globulin 3.3 g/dL (2.4-3.5); Glucose 85 mg/dL (70-105); Lipase 135 U/L (8-78); Potassium 3.7 mmol/L (3.5-5.1); Protein, Total 6.6 g/dL (6.0-8.3); Sodium 139 mmol/L (136-145)
[2018-01-23] MEDS: HYDROcodone/Acetaminophen 5/325 mg Tablet PO PRN ×2 (08:08→14:44)
[2018-01-23] MEDS: Ondansetron HCl/PF 4 MG/2 ML Vial IVP PRN (08:09)
[2018-01-23] MEDS: Polyethylene Glycol 3350 17 GM Packet PO SCH (08:14)
[2018-01-23] MEDS: Enoxaparin Sodium 40 MG/0.4 ML SYRINGE SC SCH (08:15)
--- NOTE | 2018-01-23 11:59 | PDOC.PN ---
- Subjective Encounter Start Date: 01/23/18 Encounter Start Time: 08:30 Patient seen and examined. No new complaints. No overnight events - Objective Resuscitation Status: Resuscitation Status FULL:Full Resuscitation MAR Reviewed: Yes Vital Signs & Weight: Vital Signs (12 hours) Temp Pulse Resp BP BP Pulse Ox 01/23/18 11:16 97.8 F 70 16 156/95 H 96 01/23/18 08:18 97.7 F 68 18 151/92 H 95 01/23/18 04:00 98.4 F 80 20 145/88 H 145/88 H 97 01/23/18 00:00 98.3 F 77 20 128/81 128/81 95 Weight Admit Weight 168 lb 8 oz Weight 164 lb 12.8 oz I&O: 01/22/18 01/23/18 01/24/18 06:59 06:59 06:59 Intake Total 3300 2800 Output Total 2200 Balance 1100 2800 Result Diagrams: 01/23/18 03:20 01/23/18 03:20 Phys Exam - Physical Examination Constitutional: NAD HEENT: PERRLA, moist MMs, sclera anicteric Neck: no JVD, supple Respiratory: no wheezing, no rales, no rhonchi Cardiovascular: RRR, no significant murmur, no rub Gastrointestinal: soft, non-tender, no distention, positive bowel sounds Musculoskeletal: no edema, pulses present Neurological: non-focal, normal sensation, moves all 4 limbs Lymphatic: no nodes Psychiatric: normal affect, A&O x 3 Skin: no rash, normal turgor Dx/Plan (1) Acute alcoholic pancreatitis Code(s): K85.20 - ALCOHOL INDUCED ACUTE PANCREATITIS WITHOUT NECROSIS OR INFCT Status: Acute (2) Hypokalemia Code(s): E87.6 - HYPOKALEMIA Status: Acute (3) Alcohol abuse Code(s): F10.10 - ALCOHOL ABUSE, UNCOMPLICATED Status: Chronic (4) Hypertension Code(s): I10 - ESSENTIAL (PRIMARY) HYPERTENSION Status: Chronic - Plan cont current plan of care * medication reviewed as below * symptomatic treatment * start clear liquid diet and advance as tolerated. * pain controlled * expecting discharge tomorrow Review of Systems - Review of Systems Eyes: negative: Pain, Vision Change, Conjunctivae Inflammation, Eyelid Inflammation, Redness, Other ENT: negative: Ear Pain, Ear Discharge, Nose Pain, Nose Discharge, Nose Congestion, Mouth Pain, Mouth Swelling, Throat Pain, Throat Swelling, Other Respiratory: negative: Cough, Dry, Shortness of Breath, Hemoptysis, SOB with Excertion, Pleuritic Pain, Sputum, Wheezing Cardiovascular: negative: chest pain, palpitations, orthopnea, paroxysmal nocturnal dyspnea, edema, light headedness, other Gastrointestinal: negative: Nausea, Vomiting, Abdominal Pain, Diarrhea, Constipation, Melena, Hematochezia, Other Genitourinary: negative: Dysuria, Frequency, Incontinence, Hematuria, Retention , Other Musculoskeletal: negative: Neck Pain, Shoulder Pain, Arm Pain, Back Pain, Hand Pain, Leg Pain, Foot Pain, Other Skin: negative: Rash, Lesions, German, Bruising, Other - Medications/Allergies Allergies/Adverse Reactions: Allergies Allergy/AdvReac Type Severity Reaction Status Date / Time No Known Drug Allergies Allergy Verified 12/13/17 00:28 Medications: Current Medications Acetaminophen (Tylenol) 650 mg PO Q4H PRN PRN Reason: Headache/Fever or Pain Last Admin: 01/21/18 19:02 Dose: 650 mg Hydrocodone Bitart/Acetaminophen ([place] 5/325) 1 tab PO Q4H PRN PRN Reason: Moderate Pain (4-6) Last Admin: 01/23/18 08:08 Dose: 1 tab Al Hydroxide/Mg Hydroxide (Maalox) 15 ml PO Q4H PRN PRN Reason: Heartburn or Indigestion Artificial Tears (Tears Naturale) 0 drop EA EYE PRN PRN PRN Reason: Dry Eyes Enoxaparin Sodium (Lovenox) 40 mg SC 0900 [facility] Last Admin: 01/23/18 08:15 Dose: Not Given Famotidine (Pepcid) 20 mg SLOW IVP Q12HR PRN PRN Reason: Heartburn or Indigestion Guaifenesin (Robitussin Sf) 200 mg PO Q4H PRN PRN Reason: Cough Hydralazine HCl (Apresoline) 10 mg SLOW IVP Q4H PRN PRN Reason: Systolic BP > 180 Sodium Chloride (Normal Saline 0.9%) 1,000 mls @ 100 mls/hr IV .Q10H [facility] Last Admin: 01/23/18 08:14 Dose: 1,000 mls Loperamide HCl (Imodium) 2 mg PO PRN PRN PRN Reason: Diarrhea/Loose Stools Loratadine (Claritin) 10 mg PO DAILYPRN PRN PRN Reason: Sinus Symptoms Lorazepam (Ativan) 1 mg PO Q4H PRN PRN Reason: Anxiety/Agitation Magnesium Hydroxide (Milk Of Magnesium) 30 ml PO DAILYPRN PRN PRN Reason: Constipation Mineral Oil/White Petrolatum (Eucerin Cream) 0 gm TOP BIDPRN PRN PRN Reason: Dry Skin Morphine Sulfate (Morphine) 2 mg SLOW IVP Q2H PRN PRN Reason: PAIN 4-6 Last Admin: 01/23/18 05:15 Dose: 2 mg Ondansetron HCl (Zofran) 4 mg IVP Q6H PRN PRN Reason: Nausea/Vomiting Last Admin: 01/23/18 08:09 Dose: 4 mg Ondansetron HCl (Zofran Odt) 4 mg PO Q6H PRN PRN Reason: Nausea/Vomiting Phenol (Chloraseptic [place] 180 Ml Bot) 0 ml PO PRN PRN PRN Reason: Sore Throat Polyethylene Glycol (Miralax) 17 gm PO DAILY [facility] Last Admin: 01/23/18 08:14 Dose: 17 gm Senna (Senokot) 2 tab PO HSPRN PRN PRN Reason: Constipation Sodium Chloride ([place] Nasal [place] 0.65%) 0 ml EA NARE QIDPRN PRN PRN Reason: Nasal Congestion Sodium Chloride (Flush - Normal Saline) 10 ml IVF Q12HR [facility] Last Admin: 01/23/18 08:29 Dose: Not Given Sodium Chloride (Flush - Normal Saline) 10 ml IVF PRN PRN PRN Reason: Saline Flush Zolpidem Tartrate (Ambien) 5 mg PO HSPRN PRN PRN Reason: Insomnia
[2018-01-24] MEDS: HYDROcodone/Acetaminophen 5/325 mg Tablet PO PRN ×2 (00:28→07:47)
[2018-01-24] MEDS: Sodium Chloride 0.9% 1,000 ML IV SCH ×2 (02:41→07:53)
[2018-01-24 05:43] LABS: ALT (SGPT) 25 U/L (8-55); AST (SGOT) 52 U/L (5-34); Albumin 3.1 g/dL (3.5-5.0); Alkaline Phosphatase 74 U/L (40-150); Anion Gap 10 mmol/L (10-20); BUN (Urea Nitrogen) 5 mg/dL (8.4-25.7); Bilirubin, Total 0.7 mg/dL (0.2-1.2); Calc. Creatinine Clearance 112 mL/min (70-130); Calcium 8.2 mg/dL (7.8-10.44); Carbon Dioxide 26 mmol/L (22-29); Chloride 108 mmol/L (98-107); Estimated GFR-MDRD Greater than 90; Globulin 3.3 g/dL (2.4-3.5); Glucose 104 mg/dL (70-105); Lipase 266 U/L (8-78); Potassium 3.9 mmol/L (3.5-5.1); Protein, Total 6.4 g/dL (6.0-8.3); Sodium 140 mmol/L (136-145)
[2018-01-24 06:15] LABS: #Eosinphils 0.1 thou/uL (0.0-0.7); #Lymphocytes 1.4 thou/uL (1.20-3.40); #Monocytes 0.5 thou/uL (0.11-0.59); #Neutrophils 1.6 thou/uL (1.40-6.50); %Basophils 0.9 % (0.0-1.0); %Eosinophils 3.6 % (0.0-10.0); %Monocytes 14.7 % (0.0-10.0); %Neutrophils 42.9 % (42.0-75.0); Hemoglobin 13.3 g/dL (14.0-18.0); Mean Corpuscular HGB CONC 32.6 g/dL (32.0-36.0); Mean Corpuscular Hemoglobin 31.5 pg (27.0-31.0); Mean Corpuscular Volume 96.7 fL (78.0-98.0); Mean Platelet Volume 9.1 fL (7.4-10.4); PLT Morphology Comment Appears Adequate; Platelet Count 175 thou/uL (130-400); RBC Distribution Width 11.5 % (11.5-14.5); RBC Morphology Normal; Red Blood Cell (RBC) Count 4.22 mill/uL (4.70-6.10); White Blood Cell (WBC) Count 3.6 thou/uL (4.8-10.8)
[2018-01-24] MEDS: Enoxaparin Sodium 40 MG/0.4 ML SYRINGE SC SCH (07:53)
[2018-01-24] MEDS: Polyethylene Glycol 3350 17 GM Packet PO SCH (07:53)
[2018-01-24 08:30] VITALS: BP 144/91; TEMP 97.8
--- NOTE | 2018-01-24 11:11 | PDOC.PN ---
- Subjective Encounter Start Date: 01/24/18 Encounter Start Time: 09:00 Patient seen and examined. No new complaints. No overnight events - Objective Resuscitation Status: Resuscitation Status FULL:Full Resuscitation MAR Reviewed: Yes Vital Signs & Weight: Vital Signs (12 hours) Temp Pulse Resp BP Pulse Ox 01/24/18 08:24 97.8 F 66 16 144/91 H 97 Weight Admit Weight 168 lb 8 oz Weight 164 lb 12.8 oz I&O: 01/23/18 01/24/18 01/25/18 06:59 06:59 06:59 Intake Total 2800 4620 Balance 2800 4620 Result Diagrams: 01/24/18 04:28 01/24/18 04:28 Phys Exam - Physical Examination Constitutional: NAD HEENT: PERRLA, moist MMs, sclera anicteric Neck: no JVD, supple Respiratory: no wheezing, no rales, no rhonchi Cardiovascular: RRR, no significant murmur, no rub Gastrointestinal: soft, non-tender, no distention, positive bowel sounds Musculoskeletal: no edema, pulses present Neurological: non-focal, normal sensation, moves all 4 limbs Psychiatric: normal affect, A&O x 3 Skin: no rash, normal turgor Dx/Plan (1) Acute alcoholic pancreatitis Code(s): K85.20 - ALCOHOL INDUCED ACUTE PANCREATITIS WITHOUT NECROSIS OR INFCT Status: Acute (2) Hypokalemia Code(s): E87.6 - HYPOKALEMIA Status: Acute (3) Alcohol abuse Code(s): F10.10 - ALCOHOL ABUSE, UNCOMPLICATED Status: Chronic (4) Hypertension Code(s): I10 - ESSENTIAL (PRIMARY) HYPERTENSION Status: Chronic - Plan cont current plan of care * medication reviewed as below * symptomatic treatment * see discharge summery. Review of Systems - Review of Systems Eyes: negative: Pain, Vision Change, Conjunctivae Inflammation, Eyelid Inflammation, Redness, Other ENT: negative: Ear Pain, Ear Discharge, Nose Pain, Nose Discharge, Nose Congestion, Mouth Pain, Mouth Swelling, Throat Pain, Throat Swelling, Other Respiratory: negative: Cough, Dry, Shortness of Breath, Hemoptysis, SOB with Excertion, Pleuritic Pain, Sputum, Wheezing Cardiovascular: negative: chest pain, palpitations, orthopnea, paroxysmal nocturnal dyspnea, edema, light headedness, other Gastrointestinal: negative: Nausea, Vomiting, Abdominal Pain, Diarrhea, Constipation, Melena, Hematochezia, Other Genitourinary: negative: Dysuria, Frequency, Incontinence, Hematuria, Retention , Other Musculoskeletal: negative: Neck Pain, Shoulder Pain, Arm Pain, Back Pain, Hand Pain, Leg Pain, Foot Pain, Other Skin: negative: Rash, Lesions, German, Bruising, Other - Medications/Allergies Allergies/Adverse Reactions: Allergies Allergy/AdvReac Type Severity Reaction Status Date / Time No Known Drug Allergies Allergy Verified 12/13/17 00:28 Medications: Current Medications Acetaminophen (Tylenol) 650 mg PO Q4H PRN PRN Reason: Headache/Fever or Pain Last Admin: 01/21/18 19:02 Dose: 650 mg Hydrocodone Bitart/Acetaminophen ([place] 5/325) 1 tab PO Q4H PRN PRN Reason: Moderate Pain (4-6) Last Admin: 01/24/18 07:47 Dose: 1 tab Al Hydroxide/Mg Hydroxide (Maalox) 15 ml PO Q4H PRN PRN Reason: Heartburn or Indigestion Artificial Tears (Tears Naturale) 0 drop EA EYE PRN PRN PRN Reason: Dry Eyes Enoxaparin Sodium (Lovenox) 40 mg SC 0900 [facility] Last Admin: 01/24/18 07:53 Dose: Not Given Famotidine (Pepcid) 20 mg SLOW IVP Q12HR PRN PRN Reason: Heartburn or Indigestion Guaifenesin (Robitussin Sf) 200 mg PO Q4H PRN PRN Reason: Cough Hydralazine HCl (Apresoline) 10 mg SLOW IVP Q4H PRN PRN Reason: Systolic BP > 180 Sodium Chloride (Normal Saline 0.9%) 1,000 mls @ 100 mls/hr IV .Q10H [facility] Last Admin: 01/24/18 07:53 Dose: Not Given Loperamide HCl (Imodium) 2 mg PO PRN PRN PRN Reason: Diarrhea/Loose Stools Loratadine (Claritin) 10 mg PO DAILYPRN PRN PRN Reason: Sinus Symptoms Lorazepam (Ativan) 1 mg PO Q4H PRN PRN Reason: Anxiety/Agitation Magnesium Hydroxide (Milk Of Magnesium) 30 ml PO DAILYPRN PRN PRN Reason: Constipation Mineral Oil/White Petrolatum (Eucerin Cream) 0 gm TOP BIDPRN PRN PRN Reason: Dry Skin Morphine Sulfate (Morphine) 2 mg SLOW IVP Q2H PRN PRN Reason: PAIN 4-6 Last Admin: 01/23/18 05:15 Dose: 2 mg Ondansetron HCl (Zofran) 4 mg IVP Q6H PRN PRN Reason: Nausea/Vomiting Last Admin: 01/23/18 08:09 Dose: 4 mg Ondansetron HCl (Zofran Odt) 4 mg PO Q6H PRN PRN Reason: Nausea/Vomiting Phenol (Chloraseptic [place] 180 Ml Bot) 0 ml PO PRN PRN PRN Reason: Sore Throat Polyethylene Glycol (Miralax) 17 gm PO DAILY [facility] Last Admin: 01/24/18 07:53 Dose: Not Given Senna (Senokot) 2 tab PO HSPRN PRN PRN Reason: Constipation Sodium Chloride ([place] Nasal [place] 0.65%) 0 ml EA NARE QIDPRN PRN PRN Reason: Nasal Congestion Sodium Chloride (Flush - Normal Saline) 10 ml IVF Q12HR [facility] Last Admin: 01/24/18 07:53 Dose: Not Given Sodium Chloride (Flush - Normal Saline) 10 ml IVF PRN PRN PRN Reason: Saline Flush Zolpidem Tartrate (Ambien) 5 mg PO HSPRN PRN PRN Reason: Insomnia
--- NOTE | 2018-01-24 12:05 | DIS ---
DATE OF ADMISSION: 01/20/2018 DATE OF DISCHARGE: 01/24/2018 PRIMARY CARE PHYSICIAN: [facility] call admission. DISCHARGE DISPOSITION: Home. PRIMARY DISCHARGE DIAGNOSES: 1. Acute alcoholic pancreatitis 2. Hypokalemia, corrected. SECONDARY DISCHARGE DIAGNOSES: Alcohol abuse, hypertension. PRIMARY PROCEDURE/OPERATION: None. RADIOLOGICAL INVESTIGATION: Chest x-ray was normal. Abdomen and pelvis CT scan consistent with panc reatitis. SIGNIFICANT LABORATORY DATA: WBC 3.6, hemoglobin 13.3, platelet 175. Sodium 140, creatinine 0.75, c alcium 8.2. LFT normal, albumin 3.1, lipase 266. Urinalysis normal. DISCHARGE MEDICATIONS: Amlodipine 10 mg p.o. daily, vitamin B12 1000 mcg p.o. daily, folic acid 1 mg p.o. daily, Protonix 40 mg p.o. daily, MiraLax 17 grams p.o. daily, thiamine 100 mg p.o. daily. CONTRAINDICATIONS: None. CODE STATUS: FULL CODE. INPATIENT CONSULTANTS: None. ALLERGIES: No known drug allergy. DISCHARGE PLAN: Post hospital, patient will follow up with primary care physician in 1 week. HOSPITAL COURSE: A 57-year-old male with the above-mentioned medical problem who was admitted by Dr. Sen. Please see his H&P for further details. The patient has alcohol abuse history and he cam e to emergency room with acute abdominal pain. His presentation was consistent with acute pancreatit is that was also confirmed by CT of the abdomen and pelvis. Initially he was admitted to telemetry [facility]. Subsequently, we transferred him to medical floor. We treated him with the pain medication an d p.o. status. Subsequently, we started clear liquid diet and advancing his diet. The patient is do ing very well, now his pain is resolved. We provided patient education about low fat, low cholestero l diet. I have provided extensive counseling to avoid alcohol abuse to prevent recurrent pancreatiti s. The patient is clinically stable for discharge. He will continue above-mentioned medication. This p atient has continued to be high risk for recurrent admission from pancreatitis because of his noncomp liance. Overall, patient is medically stable for discharge today.
--- NOTE | 2018-01-27 11:32 | EKG ---
Test Reason : Blood Pressure : / mmHG Vent. Rate : 102 BPM Atrial Rate : 102 BPM P-R Int : 144 ms QRS Dur : 076 ms QT Int : 344 ms P-R-T Axes : 029 -02 027 degrees QTc Int : 448 ms Poor data quality, interpretation may be adversely affected Sinus tachycardia Otherwise normal ECG Confirmed by MICHELLE MUIR, WENCESLAO ([id number]), newspaper photo editor SRINIVASA ELLIOTT ([id number]) on 01/27/2018 11:32:02 AM Referred By: Confirmed By:WENCESLAO MARTINEZ MD
== END 2018-01-24 14:02 | disposition home or self-care (01) | DRG 440 ==
LOC: ERS 20:05 → 2NO 23:00 → T4-A 01-22 14:02
PROVIDERS: ADMIT Hospitalist; ATTEND Hospitalist
DX: K85.20 Alcohol induced acute pancreatitis without necrosis or infection (principal); E87.6 Hypokalemia; F10.10 Alcohol abuse, uncomplicated; I10 Essential (primary) hypertension; K86.1 Other chronic pancreatitis; Z91.19 Patient's noncompliance with other medical treatment and regimen
CPT/HCPCS: 36415; 71045; 74177; 80048; 80053; 80061; 81003; 82553; 83690; 83735; 84100; 84484; 85025; 86140; 90471; 90732; 93005; 96361; 96374; 96375; 96376; A4216; G0009; J1650; J2270; J2405; J3411; J7042; J7050